=== PATIENT | female | born 1990 | race Caucasian/White ===

== ENCOUNTER 2016-06-01 18:23 | Emergency (ER) | payer OTHER ==
[~2016-06-01 18:23] MED LIST: PRENCAP6 PO; ZOFR4TAB3 SL
--- NOTE | 2016-06-01 19:09 | PD ---
HPI Chief Complaint water may be leaking Date Seen: Jun 01, 2016 Travel History International Travel<30 Days: No Contact w/Intl Traveler<30Days: No Known Affected Area: No History of Present Illness HPI 33 wk IUP with some vaginal leakage after urinating , no bleeding or CTXs , FHR reactive , sees Dr Rodriguez Para: 1 : 3 History Obstetric History Obstetric History 1 vag del , 1 early preg loss Social History Alcohol Use: No Tobacco Use: No Substance Abuse: No Allergies-Medications (Allergen,Severity, Reaction): Coded Allergies: No Known Allergies (Unverified , 11/27/15) Home Meds Active Scripts Ondansetron Odt (Zofran Odt)4 Mg Tab4 Mg SL Q6HR PRN (Nausea/Vomiting) #10 TAB Ref 0 Prov:Kiarra Sewell MD 01/22/16 Reported Medications Mv & Min W/Fe Fumarat ( 1) Cap1 Cap PO DAILY 11/27/15 Review of Systems General / Constitutional: No: Fever, Weight Gain, Chills, Other Eyes: No: Diploplia, Blurred Vision, Visual changes, Pain, Photophobia HENT: No: Headaches, Vertigo, Lightheadedness Cardiovascular: No: Irregular Rhythm, Chest Pain or Discomfort, Palpitations, Tachycardia, Syncope, Varicosities, Edema, Cyanosis Respiratory: No: Cough, Short of Breath, Other Gastrointestinal: No: Nausea, Vomiting, Diarrhea Genitourinary: No: Decreased Urinary Output, Oliguria Musculoskeletal: No: Limited ROM, Weakness, Cramping, Edema, Pain Skin: No Rash, No Itching, No Dryness, No Lumps, No Change in Pigmentation, No Change in Nails, No Alopecia, No Lesions Neurologic: No: Weakness, Dizziness, Syncope, Focal Abnormalities, Coordination Problem, Headache, Slurred Speech, Seizures Psychiatric: No: Depression, Suicidal Ideations, Homicidal Ideation Endocrine: No: Heat Intolerance, Cold Intolerance, Polydipsia, Polyuria, Other Physical Exam Narrative GENERAL: Well-nourished, well-developed patient. SKIN: Warm and dry. HEAD: Normocephalic and atraumatic. EYES: No scleral icterus. No injection or drainage. ENT: No nasal drainage noted. Mucous membranes pink. Airway patent. NECK: Supple, trachea midline. No JVD. CARDIOVASCULAR: Regular rate and rhythm without murmurs, gallops, or rubs. RESPIRATORY: Breath sounds equal bilaterally. No accessory muscle use. BREASTS: Bilateral exam showed no masses , no retractions, no nipple discharge. ABDOMEN/GI: Abdomen soft, non-tender, bowel sounds present, no rebound, no guarding Gravid to [-33] weeks size Fundal Height: [33-] Membranes: [intact ] amnisure negative Uterine Contractions: [none-] FHT's: Category: [-1] Baseline: [133-] Reactive: [yes-] Variability: [-mod] Decels: [-none] EXTREMITIES: No cyanosis or edema. BACK: Nontender without obvious deformity. No CVA tenderness. NEUROLOGICAL: Awake and alert. Motor and sensory grossly within normal limits. Five out of 5 muscle strength in all muscle groups. Normal speech. Data Data Labs amnisure negative MDM Interpretation(s) 33 wk IUP with vaginal drainage after urinating , no bleeding or CTXs, amnisure is negative and no continued leaking , FHr reactive , no CTXs Plan D/C home Diagnosis Diagnosis: Primary Impression: No leakage of amniotic fluid into vagina Disposition: 01 DISCHARGE HOME Condition: Stable Fco Garcia II, MD Jun 01, 2016 19:09
== END 2016-06-01 19:15 | disposition home or self-care (01) ==
LOC: HOBED 18:23
DX: O26.893 Other specified pregnancy related conditions, third trimester (principal); Z3A.33 33 weeks gestation of pregnancy
CPT/HCPCS: 84112; 99284

== ENCOUNTER 2016-07-16 13:15 | Emergency (ER) | payer OTHER ==
--- NOTE | 2016-07-16 15:37 | PD ---
HPI Chief Complaint Crampy pain since early this morning Date Seen: July 16, 2016 Travel History International Travel<30 Days: No Contact w/Intl Traveler<30Days: No Known Affected Area: No History of Present Illness HPI Patient is a 25-year-old white female at 39-1/[address] Rodriguez for care. She presents planning of crampy lower abdominal pain since early as morning. About the same and hasn't really worsened or changed. She denies bleeding or rupture the membranes baby is active heart rate tracing is reactive and there are no regular contractions only and an occasional contraction patient states she was checked in the office last week and was 3 cm. Para: 1 : 2 History Obstetric History Obstetric History One vaginal delivery 5 lbs. 11 oz. Social History Alcohol Use: No Tobacco Use: No Substance Abuse: No Allergies-Medications (Allergen,Severity, Reaction): Coded Allergies: No Known Allergies (Unverified , 11/27/15) Home Meds Active Scripts Ondansetron Odt (Zofran Odt)4 Mg Tab4 Mg SL Q6HR PRN (Nausea/Vomiting) #10 TAB Ref 0 Prov:Kiarra Sewell MD 01/22/16 Reported Medications Mv & Min W/Fe Fumarat ( 1) Cap1 Cap PO DAILY 11/27/15 Review of Systems General / Constitutional: No: Fever, Weight Gain, Chills, Other Eyes: No: Diploplia, Blurred Vision, Visual changes, Pain, Photophobia HENT: No: Headaches, Vertigo, Lightheadedness Cardiovascular: No: Irregular Rhythm, Chest Pain or Discomfort, Palpitations, Tachycardia, Syncope, Varicosities, Edema, Cyanosis Respiratory: No: Cough, Short of Breath, Other Gastrointestinal: Abdominal Pain, No: Nausea, Vomiting, Diarrhea Genitourinary: No: Decreased Urinary Output, Oliguria Musculoskeletal: No: Limited ROM, Weakness, Cramping, Edema, Pain Skin: No Rash, No Itching, No Dryness, No Lumps, No Change in Pigmentation, No Change in Nails, No Alopecia, No Lesions Neurologic: No: Weakness, Dizziness, Syncope, Focal Abnormalities, Coordination Problem, Headache, Slurred Speech, Seizures Psychiatric: No: Depression, Suicidal Ideations, Homicidal Ideation Endocrine: No: Heat Intolerance, Cold Intolerance, Polydipsia, Polyuria, Other Physical Exam Narrative GENERAL: Well-nourished, well-developed patient. SKIN: Warm and dry. HEAD: Normocephalic and atraumatic. EYES: No scleral icterus. No injection or drainage. ENT: No nasal drainage noted. Mucous membranes pink. Airway patent. NECK: Supple, trachea midline. No JVD. CARDIOVASCULAR: Regular rate and rhythm without murmurs, gallops, or rubs. RESPIRATORY: Breath sounds equal bilaterally. No accessory muscle use. BREASTS: Bilateral exam showed no masses , no retractions, no nipple discharge. ABDOMEN/GI: Abdomen soft, non-tender, bowel sounds present, no rebound, no guarding Gravid to [-39] weeks size Fundal Height: [37] GENITOURINARY: External Genitalia: intact and normal in appearance BUS glands: [-] Cervix: [-] Dilatation: [-2-3 cm] Effacement: [-] 60% Station: [0] Presentation: [-vtx] Membranes: [intact ] Uterine Contractions: [Occasional-] FHT's: Category: [-1] Baseline: [-144] Reactive: [-yes] Variability: [-mod] Decels: [none-] EXTREMITIES: No cyanosis or edema. BACK: Nontender without obvious deformity. No CVA tenderness. NEUROLOGICAL: Awake and alert. Motor and sensory grossly within normal limits. Five out of 5 muscle strength in all muscle groups. Normal speech. MDM Interpretation(s) This patient is 25-year-old white female at 39-1/2 weeks presents with crampy abdominal pain. There are no bleeding or ruptured membranes, heart rate tracing is reactive, occasional contractions seen. Cervix today is 2 -3/60/0, and she said that she was 3 cm a week ago with apparently no cervical changes since Plan The patient to be at the bedrest at home until more active labor pattern is noted. heart rate tracing is reactive. Plan for her to use her oral hydration liberally Tylenol by mouth and heating pad or hot bath for comfort. He is to follow-up with Dr. Rodriguez her OB doctor as scheduled or sooner if symptoms persist Diagnosis Diagnosis: Primary Impression: False labor after 37 weeks of gestation without delivery Disposition: 01 DISCHARGE HOME Condition: Stable Fco Garcia II, MD July 16, 2016 15:37
== END 2016-07-16 15:41 | disposition home or self-care (01) ==
LOC: HOBED 13:15
DX: O47.9 False labor, unspecified (principal); Z3A.37 37 weeks gestation of pregnancy
CPT/HCPCS: 59025

== ENCOUNTER 2016-07-17 15:39 | Inpatient (IN) | payer OTHER ==
[2016-07-17] VITALS (28 sets, daily range): BP systolic 108–144; BP diastolic 66–93; PULSE 105–138; RESP 18–20; TEMP 98.9; O2SAT 99
[2016-07-17] MEDS ORDERED: DIPHTH/TETANUS/ACEL PERTUSSIS (BOOSTER) 0.5 ML VIAL/PFS IM ONE (16:00)
[2016-07-17] MEDS ORDERED: MEASLES, MUMPS, RUBELLA VACCINE 0.5 ML VIAL SQ ONE (16:00)
--- NOTE | 2016-07-17 16:22 | HHI.HP ---
History & Physical H&P HPI HPI Travel History International Travel<30 Days: No Contact w/Intl Traveler<30Days: No Known Affected Area: No History of Present Illness HPI This patient is a 25-year-old 3 para 1011 EDC is July 20, 2016 presently at 39 weeks and 4 days she presents with chief complaint of spontaneous rupture of membranes around 3:15 this afternoon with subsequent onset of irregular contractions care with Dr. Rodriguez course is significant for a first trimester subchorionic bleed GBS is negative A positive blood type History (Limited) History Past Medical History Narrative Medical No known drug allergies no major medical problems Obstetric History Obstetric History First baby born April 03, 2011 at term 38 weeks weight 5 lbs. 11 oz. female vaginal delivery complicated by preeclampsia Spontaneous AB 1 Past Surgical History Surgical History: No Previous Surgery Family History Family History: Negative Social History Alcohol Use: No Tobacco Use: No Substance Abuse: No Allergies-Medications Allergies-Medications (Allergen,Severity, Reaction): Coded Allergies: No Known Allergies (Unverified , 11/27/15) Home Meds Active Scripts Ondansetron Odt (Zofran Odt)4 Mg Tab4 Mg SL Q6HR PRN (Nausea/Vomiting) #10 TAB Ref 0 Prov:Kiarra Sewell MD 01/22/16 Reported Medications Mv & Min W/Fe Fumarat ( 1) Cap1 Cap PO DAILY 11/27/15 ROS Review of Systems Gastrointestinal: Abdominal Pain (irregular contractions) Genitourinary: Other (spontaneous rupture of membranes) Physical Exam Physical Exam Narrative GENERAL: Well-nourished, well-developed patient. Alert oriented 3 and cooperative in mild distress secondary to uterine contractions SKIN: Warm and dry. HEAD: Normocephalic and atraumatic. EYES: No scleral icterus. No injection or drainage. Conjunctiva are pink ENT: No nasal drainage noted. Mucous membranes pink. Airway patent. CARDIOVASCULAR: Regular rate and rhythm without murmurs, gallops, or rubs. RESPIRATORY: Breath sounds equal bilaterally. No accessory muscle use. ABDOMEN/GI abdomen is gravid consistent with 6-1/2 7 pounds irregular palpable contractions no epigastric or right upper quadrant tenderness Gravid to [-] weeks size Fundal Height: [-] GENITOURINARY: Speculum exam is grossly ruptured clear fluid External Genitalia: intact and normal in appearance BUS glands: [-] Cervix: [-] Midline Dilatation: [-] 5 to 6 cm dilated Effacement: [-] 100% effaced Station: [-] 0 Station Presentation: [-] Vertex Membranes: [ ruptured] Uterine Contractions: [-] Irregular FHT's: Category: [-] 1 Baseline: [-]140 Reactive: [-] + Variability: [-] Moderate variability Decels: [-] 0 EXTREMITIES: No cyanosis or edema. 2+ reflexes NEUROLOGICAL: Awake and alert. Motor and sensory grossly within normal limits. Five out of 5 muscle strength in all muscle groups. Normal speech. Data Data Data Vital Signs Reviewed: Yes (blood pressure is 125/83 pulse is 119 she is afebrile) Orders Ob (2e) Additional Admit Info (07/17/16 16:11) MDM MDM Medical Record Reviewed: Yes Interpretation(s) 25-year-old at 39 weeks and 4 days Premature rupture of membranes clear fluid Active phase labor Group B strep negative History of preeclampsia Plan Admit External monitoring IV fluid hydration CBC type and screen Epidural if patient requests Anticipate vaginal delivery Physician Communication Dr. Thomason is covering for Dr. Rodriguez this weekend he has been made aware of the patient's admission Diagnosis Diagnosis: Primary Impression: 39 weeks gestation of Additional Impression: Premature rupture of membranes Qualified Code: O42.013 - premature rupture of membranes with onset of labor within 24 hours of rupture in third trimester Marcy Hanson MD July 17, 2016 16:21 Marcy Hanson MD July 17, 2016 16:22
[2016-07-17] MEDS ORDERED: LACTATED RINGER'S 1000 ML INJ 1,000 ML IV SCH (17:01)
[2016-07-17] MEDS ORDERED: LACTATED RINGER'S 1000 ML INJ 1,000 ML IV PRN (17:01)
[2016-07-17 17:09] LABS: AUTOMATED NEUTROPHIL # 8.7 TH/MM3 (1.8-7.7); BASOPHIL % 0.5 % (0.0-2.0); EOSINOPHIL # 0.1 TH/MM3 (0-0.4); EOSINOPHIL % 1.3 % (0.0-4.0); HEMATOCRIT 34.4 % (35.0-46.0); HEMO FLAGS DIFF FINAL; LYMPHOCYTE # 1.2 TH/MM3 (1.0-4.8); MEAN CELL VOLUME 84.5 FL (80.0-100.0); MEAN CORPUSCULAR HEMOGLOBIN 28.5 PG (27.0-34.0); MEAN CORPUSCULAR HGB CONC 33.7 % (32.0-36.0); MONO % 8.4 % (0.0-8.0); NEUT % 78.8 % (16.0-70.0); PLATELET COUNT 334 TH/MM3 (150-450); RED BLOOD COUNT 4.08 MIL/MM3 (4.00-5.30); RED CELL DISTRIBUTION WIDTH 13.4 % (11.6-17.2)
[2016-07-17] MEDS ORDERED: fentaNYL 2MCG-BUPIV 0.125% INJ 100 ML ONE (17:10)
[2016-07-17] MEDS ORDERED: MINERAL OIL 10 ML VIAL TOPICAL PRN (17:15)
[2016-07-17] MEDS ORDERED: CITRIC ACID-SODIUM CITRATE LIQ 30 ML UDC PO SCH (17:15)
[2016-07-17] MEDS ORDERED: OXYTOCIN 30 UNITS-500ML PREMIX 500 ML IV ONE ×2 (17:15→19:45)
[2016-07-17] MEDS ORDERED: LIDOCAINE HCL 1% 50 ML VIAL I-DERMAL PRN (17:15)
[2016-07-17] MEDS ORDERED: SODIUM CHLORID 0.9% 500 ML INJ 500 ML IV PRN (17:15)
[2016-07-17] MEDS ORDERED: LIDOCAINE HCL 1% 50 ML VIAL INFIL PRN (17:15)
[2016-07-17] MEDS ORDERED: SODIUM CHLOR 0.9% 1000 ML INJ 1,000 ML IV PRN (17:21)
[2016-07-17 17:24] LABS: BLOOD, URINE NEG (NEG); COMMENT (UR) CULT NOT INDICATED; CULTURE IF INDICATED CULT NOT INDICATED; GLUCOSE,URINE NEG (NEG); KETONE, URINE NEG (NEG); MUCUS URINE FEW /lpf (OCC); NITRITE,URINE NEG (NEG); SQUAMOUS EPITHELIAL CELL URINE <1 /hpf (0-5); URINE COLOR YELLOW (YELLW/STRAW)
[2016-07-17] MEDS ORDERED: BUPIVACAINE HCL PF 0.25% 10 ML VIAL ONE (17:27)
[2016-07-17] MEDS ORDERED: ePHEDrine/NS 25 MG/5 ML SYR ONE (17:28)
--- NOTE | 2016-07-17 19:42 | PD.OB.DELI ---
Delivery Date: July 17, 2016 Anesthesia: Epidural Episiotomy: None Vaginal Delivery: Normal Presentation: Occiput anterior Nuchal Cord: None Delayed cord clamping (45 sec): Yes Infant: Female One Minute : 9 Five Minute : 9 Weight: 7/1 Placenta: Spontaneous delivery, Intact, 3 vessel cord Laceration: Perineal laceration, 2 deg Repair: Vicryl running Additional Information Beautiful delivery of Rimma Small midline tear EBL 300cc Tommy Thomason MD July 17, 2016 19:42
[2016-07-17] MEDS ORDERED: WITCH HAZEL 50%/GLYCERIN 12.5% 40 PAD JAR TOPICAL PRN (19:45)
[2016-07-17] MEDS ORDERED: BENZOCAINE 20% TOPICAL SPRAY 60 ML CAN TOPICAL PRN (19:45)
[2016-07-17] MEDS ORDERED: IBUPROFEN 600 MG TAB PO PRN (19:45)
[2016-07-17] MEDS ORDERED: ZOLPIDEM TARTRATE 5 MG TAB PO PRN (19:45)
[2016-07-17] MEDS ORDERED: oxyCODONE/ACETAMINOPHEN 5 MG/325 MG TAB PO PRN ×2 (19:45)
[2016-07-17] MEDS ORDERED: SODIUM CHLORIDE 0.9% FLUSH 10 ML FLUSH IV FLUSH PRN (19:45)
[2016-07-17] MEDS ORDERED: ALUMINUM/MAGNESIUM/SIMETH 30 ML CUP PO PRN (19:45)
[2016-07-17] MEDS ORDERED: ACETAMINOPHEN 325 MG TAB PO PRN (19:45)
[2016-07-17] MEDS ORDERED: ONDANSETRON ODT 4 MG TAB PO PRN (19:45)
[2016-07-17] MEDS ORDERED: SODIUM CHLORIDE 0.9% FLUSH 10 ML FLUSH IV FLUSH SCH (21:00)
[2016-07-17] MEDS ORDERED: DOCUSATE SODIUM 50 MG/SENNA 8.6 MG TAB PO PRN (21:00)
[2016-07-18] MEDS: IBUPROFEN SUSP 100 MG/5 ML 120 ML BOTTLE PO PRN ×3 (01:20→13:16)
[2016-07-18 07:30] VITALS: BP 94/66; PULSE 85; RESP 16; TEMP 97.6
[2016-07-18] MEDS ORDERED: MULTIVIT/MIN/PREN/FOL AC/IRON PRENATAL TAB PO SCH (09:00)
--- NOTE | 2016-07-18 12:46 | HHI.OB ---
Subjective Post Day: 1 Remarks Doing well, Baby is good Pain is well controlled. Objective Vitals/I&O Vital Signs Date Time Temp Pulse Resp B/P Pulse Ox O2 Delivery O2 Flow Rate FiO2 07/18/16 07:30 97.6 85 16 07/18/16 07:30 94/66 07/17/16 21:14 18 07/17/16 20:30 105 122/70 07/17/16 20:22 18 07/17/16 20:15 110 124/75 07/17/16 20:00 120 119/74 07/17/16 19:46 18 07/17/16 19:15 123 125/66 07/17/16 19:05 118 07/17/16 19:05 121 07/17/16 19:00 132 131/77 07/17/16 19:00 115 07/17/16 19:00 125 07/17/16 18:55 118 07/17/16 18:50 117 07/17/16 18:45 106 129/78 99 07/17/16 18:45 109 07/17/16 18:45 125 07/17/16 18:31 125 134/78 07/17/16 18:30 123 07/17/16 18:30 128 07/17/16 18:26 98.9 20 07/17/16 18:15 138 07/17/16 18:15 124 114/73 07/17/16 18:15 125 07/17/16 18:00 124 130/88 07/17/16 18:00 120 07/17/16 18:00 119 07/17/16 17:55 122 07/17/16 17:55 125 07/17/16 17:50 121 07/17/16 17:50 128 07/17/16 17:49 132 131/89 07/17/16 17:45 123 108/90 07/17/16 17:45 122 07/17/16 17:45 138 07/17/16 17:43 114 129/89 07/17/16 17:41 128 143/71 07/17/16 17:40 108 07/17/16 17:40 112 07/17/16 17:35 121 07/17/16 17:30 106 07/17/16 17:20 113 07/17/16 17:19 115 144/93 Objective Remarks GENERAL: Well-nourished, well-developed patient. CARDIOVASCULAR: Regular rate and rhythm without murmurs, gallops, or rubs. RESPIRATORY: Breath sounds equal bilaterally. No accessory muscle use. ABDOMEN/GI: Abdomen soft, non-tender. Fundus: Firm, non-tender at umbilicus. GENITOURINARY: Light to moderate bleeding. EXTREMITIES: No cyanosis or edema, non-tender, without signs of DVT. Medications and IVs Current Medications Medications (Trade) Dose Ordered Sig/Rosette Route Start Time Stop Time Status Last Admin (NS Flush) 2 ml BID IV FLUSH 07/17/16 21:00 (NS Flush) 2 ml UNSCH PRN IV FLUSH 07/17/16 19:45 (Tylenol) 650 mg Q4H PRN PO 07/17/16 19:45 (Percocet 5-325 Mg) 1 tab Q4H PRN PO 07/17/16 19:45 (Percocet 5-325 Mg) 2 tab Q4H PRN PO 07/17/16 19:45 (Americaine 20% Top Spr) 1 spray Q4H PRN TOPICAL 07/17/16 19:45 (Tucks Pads) 1 applic QID PRN TOPICAL 07/17/16 19:45 (Eva-Colace) 2 tab Q12H PRN PO 07/17/16 21:00 (Ambien) 5 mg HS PRN PO 07/17/16 19:45 (Mag-Al Plus Susp Liq) 15 ml Q8H PRN PO 07/17/16 19:45 (Zofran Odt) 4 mg Q6H PRN PO 07/17/16 19:45 (Stuartnatal Plus 3 ) 1 tab DAILY PO 07/18/16 09:00 (Motrin Liq) 600 mg Q6H PRN PO 07/17/16 23:00 07/18/16 07:46 Assessment/Plan Assessment and Plan PPD #1 Doing well routine care Tommy Thomason MD July 18, 2016 12:46
[2016-07-18 15:35] VITALS: BP 111/68; PULSE 94; RESP 18; TEMP 98.2
== END 2016-07-18 22:20 | disposition home or self-care (01) | DRG 775 ==
LOC: HOBED 15:39 → H2EA 16:12 → H1EA 21:48
PROVIDERS: ADMIT Obstetrics & Gynecology; ATTEND Obstetrics & Gynecology
PROC: 10E0XZZ Delivery of Products of Conception, External Approach (ICD-10-PCS; principal; 2016-07-17)
PROC: 0KQM0ZZ Repair Perineum Muscle, Open Approach (ICD-10-PCS; 2016-07-17)
PROC: 00HU33Z Insertion of Infusion Device into Spinal Canal, Percutaneous Approach (ICD-10-PCS; 2016-07-17)
PROC: 3E0R3CZ (ICD-10-PCS; 2016-07-17)
DX: O42.02 Full-term premature rupture of membranes, onset of labor within 24 hours of rupture (principal); O70.1 Second degree perineal laceration during delivery; Z37.0 Single live birth; Z3A.39 39 weeks gestation of pregnancy
CPT/HCPCS: 59025; 81001; 85025; 86900; 86901; 90715; 99285